=== PATIENT | female | born 1955 | race Caucasian/White ===

== ENCOUNTER 2017-03-10 10:45 | Emergency (ER) | payer OTHER ==
[~2017-03-10] VITALS: Ht 162.6 cm; Wt 56.0 kg
[~2017-03-10 10:45] MED LIST: NOHOMEMEDS
[2017-03-10 11:33] LABS: HEMATOCRIT 39.4 % (36.0-46.0); MCH 28.4 PG (29.0-34.0); MCHC 33.8 G/DL (30.0-36.0); MEAN PLAT.VOLUME 9.6 uM^3 (9.5-12.4); PLATELET COUNT 202 K/uL (156-360); RBC DIS.WIDTH-CV 13.1 % (11.8-14.6); RBC DIS.WIDTH-SD 40.3 % (39-53); RED BLOOD COUNT 4.69 M/uL (3.80-5.20); WHITE BLOOD COUNT 14.3 K/uL (4.1-10.2)
[2017-03-10 11:41] LABS: CHLORIDE 103 mEq/L (99-109); POTASSIUM 4.7 mEq/L (3.7-5.4); SODIUM 140 mEq/L (136-147)
[2017-03-10 11:43] LABS: GLUCOSE 109 mg/dL (70-99)
[2017-03-10 11:45] LABS: ANION GAP 12 MEQ/L (2-14)
[2017-03-10 11:47] LABS: GFR ESTIMATE (CALCULATED) > 59 mL/min/
[2017-03-10 11:48] LABS: UREA NITROGEN (BUN) 11 mg/dL (9-23)
[2017-03-10 12:00] LABS: ADD MIUA? YES; BILIRUBIN NEGATIVE; BLOOD MODERATE; COLOR YELLOW ((YELLOW)); GLUCOSE (STRIP) NEGATIVE; KETONES 5; LEUKOCYTES LARGE; NITRITE POSITIVE; PROTEIN (STRIP) 30; SPECIFIC GRAVITY 1.012 (1.000-1.030); UROBILINOGEN 0.2 MG/DL (0.2-1.0)
[2017-03-10 12:11] LABS: BACTERIA RARE /HPF; EPITHELIAL CELLS RARE /HPF; MUCUS TRACE /LPF; UCUL ADDED? YES; WHITE BLOOD CELLS TNTC /HPF (0-5)
[2017-03-10 12:38] LABS: LIPASE 14 U/L (1.0-51.0)
[2017-03-10] MEDS ORDERED: KEFLEX500 MG PO (14:10)
[2017-03-10] MEDS ORDERED: ZOFRAN8 MG PO (14:10)
[2017-03-10] MEDS ORDERED: TYLENOL EXTRA500 MG PO (14:10)
[2017-03-10 14:45] VITALS: BP 118/61
== END 2017-03-10 14:47 | disposition home or self-care (01) ==
LOC: EME 10:45
DX: N10 Acute pyelonephritis (principal); K59.00 Constipation, unspecified
CPT/HCPCS: 74177; 80048; 81003; 83690; 85027; 86900; 86901; 87077; 87086; 87186; 99281; 99284; J0696; J7030; J7050